=== PATIENT | female | born 2005 | race African-American/Black ===

== ENCOUNTER 2025-05-18 19:06 | Emergency (ER) | payer BC | END 2025-05-18 22:00 | disposition home or self-care (01) | LOC: NAV ERS 19:06 | DX: L03.113 Cellulitis of right upper limb (principal); E11.9 Type 2 diabetes mellitus without complications; R11.0 Nausea; R29.700 NIHSS score 0; Z79.4 Long term (current) use of insulin | CPT/HCPCS: 99284 ==